=== PATIENT | female | born 1980 | race Two or more races ===

== ENCOUNTER 2020-04-20 18:47 | Inpatient (IN) | payer MEDICAID ==
[~2020-04-20] VITALS: Ht 167.6 cm; Wt 85.7 kg
[2020-04-20] MEDS ORDERED: DEXT 5%/LR + PITOCIN 20UNITS/L 1,000 ML IV SCH (20:14)
[2020-04-20] MEDS ORDERED: LACTATED RINGERS 1,000 ML IV SCH (20:14)
[2020-04-20] MEDS ORDERED: LIDOCAINE HCL 1% 20ML VIAL (Pyxis) INJ INFIL SCH (20:15)
[2020-04-20] MEDS ORDERED: NALOXONE HCL 0.4 MG/ML 1ML VIAL IM PRN (20:15)
[2020-04-20] MEDS ORDERED: METHYLERGONOVINE MALEATE 0.2 MG/ML IM PRN (20:15)
[2020-04-20] MEDS ORDERED: BUTORPHANOL TARTRATE 2 MG/ML VIAL IV PRN (20:15)
[2020-04-20] MEDS ORDERED: LABETALOL HCL 5MG/ML VIAL 20ML IV PRN ×3 (20:15)
[2020-04-20] MEDS: MAGNESIUM 20 G PREMIX (L & D) 500 ML IV SCH (21:10)
[2020-04-20] MEDS: LABETALOL HCL 200MG TABLET PO SCH (22:06)
[2020-04-20 22:44] LABS: CLARITY URINE CLEAR (CLEAR); COLOR URINE YELLOW (YELLOW); KETONES URINE TRACE (NEGATIVE); LEUKOCYTE ESTERASE URINE TRACE (NEGATIVE); NITRITE URINE NEGATIVE (NEGATIVE); OCCULT BLOOD URINE NEGATIVE (NEGATIVE); PH URINE 5.5 (4.5-8.0); PROTEIN URINE NEGATIVE (NEGATIVE); SPECIFIC GRAVITY URINE 1.011 (1.005-1.030); UROBILINOGEN URINE 0.2 E.U./dL (0.2-1.0)
[2020-04-20 22:51] LABS: BASOPHILS % 0.6 % (0.0-2.0); EOSINOPHILS % 0.3 % (0.0-5.0); HEMATOCRIT. 33.1 % (36.0-48.0); HEMOGLOBIN. 11.5 g/dL (12.0-16.0); LYMPHOCYTES % 18.5 % (20.0-50.0); MEAN CORPUSCULAR HEMOGLOBIN 30.2 pg (28.0-32.0); MEAN CORPUSCULAR VOLUME 86.8 fL (81.0-99.0); MEAN PLATELET VOLUME 8.1 fl (7.4-10.4); MONOCYTES % 6.8 % (2.0-8.0); NEUTROPHILS % 73.8 % (40.0-76.0); PLATELET 285 x1000/uL (130-400); RED BLOOD CELL COUNT 3.81 mill/uL (4.2-5.4); RED CELL DISTRIBUTION WIDTH 14.2 % (11.6-14.6)
[2020-04-20 22:57] LABS: *AMPHETAMINES SCREEN URINE NEGATIVE (NEGATIVE); *BARBITURATES SCREEN URINE NEGATIVE (NEGATIVE); *BENZODIAZEPINES SCREEN URINE NEGATIVE (NEGATIVE); *COCAINE SCREEN URINE NEGATIVE (NEGATIVE); METHADONE URINE SCREEN NEGATIVE (NEGATIVE); OPIATES URINE SCREEN NEGATIVE (NEGATIVE)
[2020-04-20 22:58] LABS: CANNABINOID URINE SCREEN NEGATIVE (NEGATIVE); PHENCYCLIDINE URINE SCREEN NEGATIVE (NEGATIVE)
[2020-04-20 22:59] LABS: CHLORIDE 109 mEq/L (98-107)
[2020-04-20 23:04] LABS: D-DIMER 1.19 mg/L FEU (<0.50); INR 0.9; PROTHROMBIN TIME 9.9 sec (9.6-11.0)
[2020-04-20 23:27] LABS: HEPATITIS B SURFACE ANTIGEN NEGATIVE
[2020-04-21] MEDS ORDERED: LABETALOL HCL 5MG/ML VIAL 20ML IV PRN ×6 (00:30→13:30)
[2020-04-21] MEDS ORDERED: ONDANSETRON HCL 4MG/2ML INJ IV PRN ×2 (01:15→09:30)
[2020-04-21] MEDS ORDERED: LABE200T28 PO (06:33)
[2020-04-21] MEDS ORDERED: PREN1TAB78 PO (06:33)
[2020-04-21] MEDS: MAGNESIUM 20 G PREMIX (L & D) 500 ML IV SCH ×2 (06:47→23:52)
[2020-04-21] MEDS ORDERED: PENICILLIN G POTASSIUM 5 MMU in DEXT 5% WATER 100 ML IV SCH (08:00)
[2020-04-21] MEDS ORDERED: ROPIVACAINE HCL 2MG/ML (0.2%) 200ML BOTTLE IR SCH (09:15)
[2020-04-21] MEDS ORDERED: DIPHENHYDRAMINE 50MG/ML VIAL IV PRN (09:30)
[2020-04-21] MEDS ORDERED: ROPIVACAINE HCL/PF 0.2% (2MG/ML) EPID 200ML EPI SCH (09:30)
[2020-04-21] MEDS ORDERED: ROPIVACAINE HCL/PF EPIDURAL 200 ML EPI SCH (09:30)
[2020-04-21] MEDS ORDERED: FENTANYL CITRATE/PF 50MCG/ML 2ML VIAL ONE (09:49)
[2020-04-21] MEDS: LABETALOL HCL 200MG TABLET PO SCH ×2 (10:04→21:58)
[2020-04-21] MEDS ORDERED: PENICILLIN G POTASSIUM 2.5 MMU in DEXTROSE 5% WATER 50 ML IV SCH (12:00)
[2020-04-21] MEDS ORDERED: RHO(D) IMMUNE GLOBULIN 300 MCG/SYR IM PRN (12:00)
[2020-04-21] MEDS ORDERED: IBUPROFEN 400MG TABLET PO PRN (12:00)
[2020-04-21] MEDS: DEXT 5%/LR + PITOCIN 20UNITS/L 1,000 ML IV SCH ×2 (12:22→22:01)
[2020-04-21] MEDS ORDERED: MAGNESIUM 20 G PREMIX (L & D) 500 ML IV SCH (12:56)
[2020-04-21 14:10] VITALS: BP 140/83
[2020-04-21 16:00] VITALS: BP 144/81
[2020-04-21 18:00] VITALS: BP 146/86
[2020-04-21 20:00] VITALS: BP 150/91
[2020-04-21] MEDS ORDERED: LABETALOL HCL 200MG TABLET PO SCH (21:00)
[2020-04-21] MEDS: IBUPROFEN 800MG TABLET PO PRN (21:26)
[2020-04-22] MEDS ORDERED: PROPOFOL 200MG/20ML VIAL IV ONE (03:13)
[2020-04-22 04:00] VITALS: BP 148/90
[2020-04-22] MEDS ORDERED: LABETALOL HCL 200MG TABLET PO SCH (06:20)
[2020-04-22 06:40] LABS: BASOPHILS % 0.1 % (0.0-2.0); EOSINOPHILS % 0.8 % (0.0-5.0); HEMATOCRIT. 28.8 % (36.0-48.0); HEMOGLOBIN. 10.1 g/dL (12.0-16.0); LYMPHOCYTES % 18.1 % (20.0-50.0); MEAN CORPUSCULAR HEMOGLOBIN 30.2 pg (28.0-32.0); MEAN CORPUSCULAR VOLUME 86.1 fL (81.0-99.0); MEAN PLATELET VOLUME 7.7 fl (7.4-10.4); MONOCYTES % 9.4 % (2.0-8.0); NEUTROPHILS % 71.6 % (40.0-76.0); PLATELET 223 x1000/uL (130-400); RED BLOOD CELL COUNT 3.35 mill/uL (4.2-5.4); RED CELL DISTRIBUTION WIDTH 14.2 % (11.6-14.6)
[2020-04-22 08:00] VITALS: BP 154/92
[2020-04-22] MEDS: LABETALOL HCL 200MG TABLET PO SCH ×3 (08:19→19:54)
[2020-04-22] MEDS ORDERED: SODIUM CHLORIDE 0.9% 10ML VIAL ONE (10:34)
[2020-04-22] MEDS ORDERED: CEFAZOLIN SODIUM 1000MG/VIAL ONE (10:35)
[2020-04-22] MEDS ORDERED: PHENYLEPHRINE HCL 10 MG/ML 1ML (IV VIAL) IV ONE (10:35)
[2020-04-22 11:23] VITALS: BP 136/84
[2020-04-22] MEDS: IBUPROFEN 800MG TABLET PO PRN ×2 (13:44→22:45)
[2020-04-22 15:02] VITALS: BP 148/86
[2020-04-22 20:00] VITALS: BP 163/92
[2020-04-22 23:00] VITALS: BP 153/87
[2020-04-23] MEDS ORDERED: IBUP-2030 PO (03:25)
[2020-04-23] MEDS ORDERED: LABE200T28 PO (03:25)
[2020-04-23] MEDS ORDERED: FERR325T6 MT (03:25)
[2020-04-23 04:00] VITALS: BP 148/89
[2020-04-23] MEDS: LABETALOL HCL 200MG TABLET PO SCH ×3 (05:03→13:22)
[2020-04-23] MEDS: IBUPROFEN 800MG TABLET PO PRN ×2 (05:09→13:22)
[2020-04-23 08:00] VITALS: BP 149/96
== END 2020-04-23 13:35 | disposition home or self-care (01) | DRG 541 ==
LOC: 8 EST LDRP 18:47 → OBSVTOIN 18:47 → 8EST 04-21 14:59
PROVIDERS: ADMIT Obstetrics & Gynecology; ATTEND Obstetrics & Gynecology
PROC: 10E0XZZ Delivery of Products of Conception, External Approach (ICD-10-PCS; principal; 2020-04-21)
PROC: 3E0R3BZ Introduction of Anesthetic Agent into Spinal Canal, Percutaneous Approach (ICD-10-PCS; 2020-04-21)
PROC: 00HU33Z Insertion of Infusion Device into Spinal Canal, Percutaneous Approach (ICD-10-PCS; 2020-04-21)
PROC: 0UB70ZZ Excision of Bilateral Fallopian Tubes, Open Approach (ICD-10-PCS; 2020-04-22)
DX: O11.4 Pre-existing hypertension with pre-eclampsia, complicating childbirth (principal); O60.14X0 Preterm labor third trimester with preterm delivery third trimester, not applicable or unspecified; O99.324 Drug use complicating childbirth; O99.03 Anemia complicating the puerperium; F16.10 Hallucinogen abuse, uncomplicated; O13.4 Gestational [pregnancy-induced] hypertension without significant proteinuria, complicating childbirth; Z20.828 Contact with and (suspected) exposure to other viral communicable diseases; Z3A.34 34 weeks gestation of pregnancy; Z37.0 Single live birth; Z30.2 Encounter for sterilization; O09.529 Supervision of elderly multigravida, unspecified trimester; Z3A.35 35 weeks gestation of pregnancy
CPT/HCPCS: 36415; 76815; 80053; 80305; 80359; 81003; 83735; 84550; 85025; 85379; 85384; 86592; 86703; 86762; 86850; 86900; 87340; 87426; 88302; 99281; J0595; J0690; J2370; J2405; J2540; J2590; J2704; J2795; J3010; J3475; J3490; J7060

== ENCOUNTER 2020-04-28 16:15 | Emergency (ER) | payer MEDICAID ==
[~2020-04-28] VITALS: Ht 160 cm; Wt 79.0 kg
[~2020-04-28 16:15] MED LIST: FERR325T6 MT; IBUP-2030 PO; LABE200T28 PO; PREN1TAB78 PO
[2020-04-28 17:36] LABS: CHLORIDE 113 mEq/L (98-107)
[2020-04-28 17:37] LABS: BASOPHILS % 0.7 % (0.0-2.0); EOSINOPHILS % 1.2 % (0.0-5.0); HEMATOCRIT. 33.4 % (36.0-48.0); HEMOGLOBIN. 11.3 g/dL (12.0-16.0); LYMPHOCYTES % 19.4 % (20.0-50.0); MEAN CORPUSCULAR HEMOGLOBIN 29.5 pg (28.0-32.0); MEAN CORPUSCULAR VOLUME 86.8 fL (81.0-99.0); MEAN PLATELET VOLUME 7.2 fl (7.4-10.4); MONOCYTES % 7.8 % (2.0-8.0); NEUTROPHILS % 70.9 % (40.0-76.0); PLATELET 344 x1000/uL (130-400); RED BLOOD CELL COUNT 3.85 mill/uL (4.2-5.4); RED CELL DISTRIBUTION WIDTH 14.3 % (11.6-14.6)
[2020-04-28] MEDS ORDERED: NIFEDIPINE 10MG CAPSULE PO ONE (18:45)
[2020-04-28 18:56] LABS: CLARITY URINE CLEAR (CLEAR); COLOR URINE ORANGE (YELLOW); KETONES URINE NEGATIVE (NEGATIVE); LEUKOCYTE ESTERASE URINE 3+ (NEGATIVE); NITRITE URINE NEGATIVE (NEGATIVE); OCCULT BLOOD URINE 3+ (NEGATIVE); PROTEIN URINE 2+ (NEGATIVE); SPECIFIC GRAVITY URINE 1.008 (1.005-1.030); UROBILINOGEN URINE 0.2 E.U./dL (0.2-1.0)
[2020-04-28 20:35] VITALS: BP 191/128
== END 2020-04-28 21:42 | disposition home or self-care (01) ==
LOC: ER 16:15
DX: O16.3 Unspecified maternal hypertension, third trimester (principal); Z3A.35 35 weeks gestation of pregnancy; Z98.51 Tubal ligation status; Z79.899 Other long term (current) drug therapy
CPT/HCPCS: 36415; 80053; 81003; 85025; 93005; 99285

== ENCOUNTER 2021-11-07 15:33 | Emergency (ER) | payer MEDICAID ==
[~2021-11-07] VITALS: Ht 162.6 cm; Wt 78.0 kg
[~2021-11-07 15:33] MED LIST changes: -LABE200T28 PO; +LABE200T9 PO
[2021-11-07 15:49] VITALS: BP 159/88
[2021-11-07] MEDS ORDERED: MORPHINE SULFATE 4 MG/ML CPJ (NOT FOR IM USE) IV ONE (16:00)
[2021-11-07] MEDS ORDERED: METOCLOPRAMIDE HCL 10MG/2ML VIAL IV ONE (16:00)
[2021-11-07] MEDS ORDERED: SODIUM CHLORIDE 0.9% 1,000 ML IV ONE (16:00)
[2021-11-07 16:18] LABS: HEMATOCRIT. 42.1 % (36.0-48.0); HEMOGLOBIN. 14.9 g/dL (12.0-16.0); MEAN CORPUSCULAR HEMOGLOBIN 29.5 pg (28.0-32.0); MEAN CORPUSCULAR VOLUME 83.4 fL (81.0-99.0); MEAN PLATELET VOLUME 7.1 fl (7.4-10.4); PLATELET 282 x1000/uL (130-400); RED BLOOD CELL COUNT 5.06 mill/uL (4.2-5.4); RED CELL DISTRIBUTION WIDTH 13.6 % (11.6-14.6)
[2021-11-07 16:22] LABS: CHLORIDE 110 mEq/L (98-107)
[2021-11-07 16:27] LABS: HCG SCREEN NEGATIVE
[2021-11-07 16:28] LABS: PHOSPHORUS 1.9 mg/dL (2.5-4.9)
[2021-11-07] MEDS ORDERED: KETOROLAC 30MG/ML VIAL IV ONE (16:45)
[2021-11-07] MEDS ORDERED: POTASSIUM-SODIUM PHOSPHATE POWDER PACKET PO ONE (16:45)
[2021-11-07] MEDS ORDERED: PROCHLORPERAZINE 10MG/2ML VIAL IV ONE (16:45)
[2021-11-07 17:38] LABS: PLATELET ESTIMATE NORMAL
== END 2021-11-07 20:00 | disposition home or self-care (01) ==
LOC: ER 15:33
DX: R51.9 Headache, unspecified (principal); I10 Essential (primary) hypertension; Z98.51 Tubal ligation status
CPT/HCPCS: 36415; 70450; 71045; 80053; 83735; 83880; 84100; 84484; 84703; 85025; 85379; 93005; 96361; 96374; 96375; 99285; J0780; J1885; J2270; J2765; J7030; Z7610

== ENCOUNTER → 2024-08-31 | Day surgery (SDC) | payer MEDICAID ==
[~2024-08-31] VITALS: Ht 162.6 cm; Wt 78.9 kg
[~2024-08-31] MED LIST changes: +BUPIVACAINE HCL/PF 0.5% (5MG/ML) 10ML ONE; +DEXAMETHASONE 4MG/ML 1ML VIAL ONE; +FENTANYL CITRATE/PF 50MCG/ML 2ML VIAL ONE; +HYDROMORPHONE HCL/PF 1MG/ML INJ IV PRN; +HYDROMORPHONE HCL/PF 1MG/ML INJ ONE; +LABETALOL 5MG/ML 4ML INJ IV PRN; +LACTATED RINGERS 1,000 ML IV SCH; +LIDOCAINE HCL 1% 20ML VIAL ONE; +LISI-648 PO; +MEPERIDINE HCL/PF 25MG/ML CPJ IV PRN; +MIDAZOLAM HCL 2 MG/2 ML VIAL ONE; +ONDANSETRON HCL 4MG/2ML INJ ONE; +PROPOFOL 200MG/20ML VIAL IV ONE; +ROCURONIUM BROMIDE 10MG/ML VIAL 5ML IV ONE; +SKIN ADHESIVE 0.7 GM EA TOP ONE; +SUGAMMADEX SODIUM 200MG/2ML VIAL IV ONE
[2024-08-31 07:00] LABS: UCG KIT LOT# 873622
[2024-08-31 07:01] LABS: UCG SCREEN NEGATIVE
[2024-08-31 12:59] VITALS: BP 124/83; PULSE 91; RESP 24
[2024-08-31] MEDS: ACETAMINOPHEN WITH CODEINE 300/30MG TABLET PO NR (12:59)
[2024-08-31] MEDS: ONDANSETRON HCL 4MG/2ML INJ IV PRN (14:08)
== END | disposition home or self-care (01) ==
LOC: OR 06:31
PROVIDERS: ATTEND Surgery
DX: K80.00 Calculus of gallbladder with acute cholecystitis without obstruction (principal); I10 Essential (primary) hypertension; Z79.899 Other long term (current) drug therapy; Z98.890 Other specified postprocedural states
CPT/HCPCS: 47562; 81025; 88304; J3010; J3490 ×3; J1100; J2250; J2405; J2704; J1171; J7030